=== PATIENT | male | born 1965 | race Caucasian/White ===

== ENCOUNTER 2017-02-21 06:14 | Day surgery (SDC) | payer BC ==
[2017-02-17 17:54] LABS: BASOPHILS ABSOLUTE 0.06 10/3/uL (0.0-0.16); EOSINOPHILS 3.7 %; EOSINOPHILS ABSOLUTE 0.22 10/3/uL (0.0-0.53); HEMATOCRIT 41.7 % (40.0-51.0); HEMOGLOBIN 14.2 g/dL (13.6-17.8); IMMATURE GRANULOCYTES 0.3 %; IMMATURE GRANULOCYTES ABSOLUTE 0.02 10/3/uL (0.0-0.11); LYMPHOCYTES 29.4 %; LYMPHOCYTES ABSOLUTE 1.73 10/3/uL (0.67-4.30); MEAN CORPUS HGB CONC 34.1 g/dL (32.0-36.0); MEAN CORPUSCULAR HEMOGLOB 31.9 pg (26.0-34.0); MEAN CORPUSCULAR VOLUME 93.7 fL (80-100); MONOCYTES ABSOLUTE 0.47 10/3/uL (0.21-1.20); NEUTROPHILS 57.6 %; NEUTROPHILS ABSOLUTE 3.39 10/3/uL (2.02-8.40); PLATELET COUNT 205 10/3/uL (150-400); RBC DISTRIBUTION WIDTH 13.4 % (12.0-16.0); RED CELL COUNT 4.45 10/6/uL (4.7-6.1); WHITE BLOOD CELLS 5.9 10/3/uL (4.5-10.5)
[2017-02-17 17:55] LABS: MANUAL DIFF NO %
[2017-02-17 18:08] LABS: BUN (BLOOD UREA NITROGEN) 21 MG/DL (6-23); CALCIUM, SERUM 8.6 MG/DL (8.5-10.4); CHLORIDE, SERUM 106 MMOL/L (96-112); CO2 (CARBON DIOXIDE) 29 MMOL/L (24-34); CREATININE 1.14 MG/DL (0.70-1.30); GFR AFRICAN AMERICAN 85 ML/MIN (>=60); GFR NON AFRICAN AMERICAN 73 ML/MIN (>=60); GLUCOSE, SERUM 102 MG/DL (60-99); POTASSIUM, SERUM 4.3 MMOL/L (3.5-5.3); SODIUM, SERUM 143 MMOL/L (135-148)
--- NOTE | ~2017-02-21 | OP ---
Record Of Operation [place] [id number] [facility] [place]. [address] NAME: MERARI TOVAR : 61 STATUS : REG [facility] PAT#: [id number] AGE: 51 ADM/REG DATE : 02/21/17 MR#: [id number] REPORT SERV DATE: 02/21/17 DICTATED BY: ERICK NAIDU DATE: 02/21/17 REPORT STATUS : Draft TRANSCRIBED BY: MODAugustus DATE: 02/21/17 DATE OF PROCEDURE: 02/21/2017 SERVICE: Otolaryngology. PREOPERATIVE DIAGNOSES: 1. Acquired nasal deformity. 2. Deviated nasal septum. 3. Bilateral inferior turbinate hypertrophy. POSTOPERATIVE DIAGNOSES: 1. Acquired nasal deformity. 2. Deviated nasal septum. 3. Bilateral inferior turbinate hypertrophy. PROCEDURES: 1. Repair of internal nasal valve stenosis. 2. Septoplasty. 3. [place] of septal cartilage for use as a graft in the nose. 4. Bilateral inferior turbinate reduction and outfracture. ANESTHESIA: General endotracheal anesthesia. ESTIMATED BLOOD LOSS: 10 mL. COMPLICATIONS: None. SPECIMENS: Nasal bone and cartilage. FINDINGS: The patient had a very twisted dorsal and caudal nasal septum. A large deviated septal spur to the left of the inferior turbinate hypertrophy. STATEMENT OF MEDICAL NECESSITY: This is a 51-year-old male with longstanding nasal airway obstruction and twisted acquired nasal deformity. Given these findings, I recommended the above surgery. STATEMENT OF OPERATION: The patient was brought to the operating room in supine position, transferred over to the operating room table. After all pressure points were padded and general endotracheal anesthesia was established, the nasal hairs were trimmed with a short straight iris scissors. 1% lidocaine with epinephrine was then injected in the septal flaps and soft tissue envelope of the nose bilaterally totalling 6 mL. The nose was also packed with 4% cocaine-soaked pledgets. He was then prepped and draped in the usual fashion. The pledgets were removed. A transcolumellar incision was marked out in an inverted V fashion. Bilateral marginal incisions were made followed by a transcolumellar incision. The columellar skin was elevated in the submuscular plane with short angled scissors and connecting them with the marginal incisions. The skin and soft tissue envelop was fully Record Of Operation [place] [id number] [facility] [place]. [address] NAME: MERARI TOVAR : 61 STATUS : REG [facility] PAT#: [id number] AGE: 51 ADM/REG DATE : 02/21/17 MR#: [id number] REPORT SERV DATE: 02/21/17 DICTATED BY: ERICK NAIDU DATE: 02/21/17 REPORT STATUS : Draft TRANSCRIBED BY: GRISELDA DATE: 02/21/17 elevated in the submuscular plane to expose the upper and lower lateral cartilages, and the anterior septal angle was then developed with a #15 blade. Bilateral subperichondrial and subperiosteal flaps were created and the upper lateral cartilages were divided sharply from the dorsal septal cartilage with a 15 blade. The bony cartilaginous junction was bluntly . The large septal spur required some extra work to get the mucosa off and around it, which caused a small laceration. Then, leaving a dorsal strut of 1.5 cm, an extracorporeal septoplasty was performed. The twisted quadrangular cartilage was taken to the back table. A large L strut was created using the straight edges of the septum and this was replaced back in on the patient's left-hand side. It was inserted dorsally between the upper lateral cartilage and dorsal septal cartilage and fit in between the medial crura of the lower lateral cartilages. Using some of the excess cartilage, a green chain off bearer graft and a columellar strut graft were carved on the back table. The green chain off bearer graft was placed in the contralateral side. The complex of the medial crura, the neoseptum, the dorsal septum and green chain off bearer graft, and upper lateral cartilages were sewn together with a 5-0 PDS suture x2. Next, a soft tissue pocket was developed between the medial crura of the lower lateral cartilage. A single intradomal stitch was placed on the right to improve symmetry of the nasal tip. The cartilaginous strut graft was placed in the soft tissue pocket and with the dermatology physician assistant holding the tips in appropriate projection and rotation, the complex of the medial crura and columellar strut grafts were sewn in with 5-0 PDS. The skin and soft tissue envelope was redraped. The patient had improved symmetry, so the next step, I injected the inferior turbinates with 1 mL each of 1% lidocaine with epinephrine. Then, using a 2-0 microdebrider, I did submucosal reduction and outfracture with the Boies elevator. Once this was completed, the transcolumellar incision was closed with interrupted 6-0 fast absorbing gut sutures followed by the intranasal incisions, which were closed with 4-0 chromic gut sutures. Butt splints were inserted into both sides of the nose. They were coated in bacitracin and secured to the anterior septum with a 2-0 nylon stitch to the skin and face. The patient was then cleansed with warm saline and dried. Mastisol solution was applied to the dorsal skin of the nose followed by modified Steri-Strips and an Aquaplast splint. Finally, the stomach and oropharynx were suctioned clear of blood and fluid with an orogastric tube. This concluded the case. The patient awoke, was extubated and transferred to the PACU in stable condition. PS/MODL Erick Naidu MD / [id number] CC: MD Escobar Rodriguez M.D.
[~2017-02-21 06:14] MED LIST: ASAB PO; BACDS PO; CITRACAL; PRILO PO; RESTASIS OPH; TUMS; ZYRTEC ALLGY10 MG PO; [UNRECOGNIZED DRUG - OTHER]
== END 2017-02-21 23:59 | disposition home or self-care (01) ==
LOC: MSC 06:14
PROVIDERS: Otolaryngology
PROC: 09TL7ZZ Resection of Nasal Turbinate, Via Natural or Artificial Opening (ICD-10-PCS; 2017-02-21)
PROC: 09SM0ZZ Reposition Nasal Septum, Open Approach (ICD-10-PCS; principal; 2017-02-21 08:15)
DX: M95.0 Acquired deformity of nose (principal); J34.2 Deviated nasal septum; J34.3 Hypertrophy of nasal turbinates
CPT/HCPCS: 80048; 85025; 88300; 93005; A9270-GY; J0690; J2250; J2710; J3010